=== PATIENT | female | born 1990 | race Caucasian/White ===

== ENCOUNTER 2021-06-27 01:01 | Emergency (ER) | payer MEDICAID ==
[~2021-06-27] VITALS: Ht 152.4 cm; Wt 96.0 kg
[2021-06-27 01:27] VITALS: BP 108/71
[2021-06-27] MEDS ORDERED: TRAMADOL 50MG TABLET PO ONE (02:00)
[2021-06-27] MEDS ORDERED: ACETAMINOPHEN 325MG TABLET PO ONE (02:00)
[2021-06-27] MEDS ORDERED: DIPHENHYDRAMINE 25MG CAPSULE PO ONE (02:00)
== END 2021-06-27 05:28 | disposition home or self-care (01) ==
LOC: ER 01:01
DX: G44.209 Tension-type headache, unspecified, not intractable (principal); Z98.890 Other specified postprocedural states
CPT/HCPCS: 70450; 81025; 99284; Q0163; Z7610